=== PATIENT | male | born 1940 | race Caucasian/White ===

== ENCOUNTER → 2019-04-17 | Outpatient (CLI) | payer MEDICARE, OTHER ==
[~2019-04-17] MED LIST: HOLD METFORMIN - RECEIVED CONTRAST 20 ML VIAL IV SCH; IOHEXOL 350 MG/ML 100 ML (OMNIPAQUE 350) VIAL IV ONE; NS 100 ML (IVPB) BAG IV ONE
[2019-04-17 11:41] LABS: BUN/CREATININE RATIO 13; CREATININE SERUM 1.12 MG/DL (0.60-1.30); GFR ESTIMATED > 60
--- NOTE | 2019-04-17 14:25 | Diagnostic Imaging Report ---
PROCEDURE: CT neck soft tissue with contrast. TECHNIQUE: Multiple contiguous axial images were obtained through the neck after the administration of contrast. Auto Exposure Controls were utilized during the CT exam to meet ALARA standards for radiation dose reduction. INDICATION: Right neck pain and right neck swelling. COMPARISON: No prior studies are available for comparison. FINDINGS: BB marker is placed at the area of palpable abnormality in the right neck. There is a slightly irregular solid-appearing mass just deep to this location. This is deep to the lower portion of the right parotid gland and just anterior to the sternocleidomastoid musculature. Abnormal soft tissue measures 2.0 cm AP x 2.4 cm transverse x 2.8 cm cephalocaudal. This may represent enlarged lymph node. No other enlarged nodes are seen. Posterior cervical space is unremarkable. Bilateral submandibular and parotid glands appear to be fairly symmetric. Posterior nasopharynx are unremarkable. There is abnormal soft tissue thickening in the right lateral oropharynx. This area of thickening is suspicious for a mass measuring 2.9 x 2.2 cm. This abuts the base of the tongue on the right side. Epiglottis is unremarkable. Larynx is unremarkable. No thyroid mass is identified. The visualized intracranial structures are unremarkable. IMPRESSION: The area of soft tissue fullness in the right neck corresponds to a probable enlarged lymph node, as described. There is also abnormal soft tissue thickening in the region of the lateral right oropharynx/tonsillar region, abutting the right base of the tongue. This could represent a primary neoplasm with metastatic node to the right neck. Direct visualization of the oropharynx is recommended. If additional imaging is needed, MRI of the soft tissues of the neck with contrast may be useful for better characterization. PET imaging may be useful as well. Dictated by: Dictated on workstation # [id number]
== END ==
LOC: RAD 11:14
PROVIDERS: ATTEND Otolaryngology Otolaryngology/Facial Plastic Surgery
DX: R59.9 Enlarged lymph nodes, unspecified (principal)
CPT/HCPCS: 36415; 70491; 82565; 84520

== ENCOUNTER 2019-05-08 05:33 | Outpatient (CLI) | payer MEDICARE, OTHER ==
[~2019-05-08] VITALS: Ht 188 cm; Wt 86.4 kg
[2019-05-08] MEDS ORDERED: ASPI-586 PO (13:46)
[2019-05-08] MEDS ORDERED: LUBI8CAP PO (13:46)
[2019-05-08] MEDS ORDERED: ROSU10TA22 PO (13:46)
[2019-05-08] MEDS ORDERED: PANT20TA3 PO (13:46)
== END 2019-05-08 13:54 | disposition home or self-care (01) ==
LOC: PREOP 05:33
PROVIDERS: ATTEND Otolaryngology Otolaryngology/Facial Plastic Surgery
DX: Z01.818 Encounter for other preprocedural examination (principal)

== ENCOUNTER → 2019-05-22 | Outpatient (CLI) | payer MEDICARE, OTHER ==
[~2019-05-22] MED LIST changes: +2% VISCOUS LIDOCAINE PO; +ASPI-586 PO; +CATHETER FLUSH 10 ML SYR IV PRN; +HYDR-83 PO; +LUBI8CAP PO; +PANT20TA3 PO; +ROSU10TA22 PO
--- NOTE | 2019-05-22 12:35 | Diagnostic Imaging Report ---
PROCEDURE: CT chest with contrast only. TECHNIQUE: Multiple contiguous axial images were obtained through the chest after administration of intravenous contrast. Auto Exposure Controls were utilized during the CT exam to meet ALARA standards for radiation dose reduction. 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 COMPARISON: CT neck of 04/17/2019. FINDINGS: The heart size is within normal limits. No pericardial effusion is present. There is calcified aortic and coronary atherosclerotic plaque without evidence of aneurysm. There is no mediastinal, hilar, or axillary lymphadenopathy. The lung volumes are hyperexpanded. The lungs demonstrate no pulmonary nodules or masses. There are no focal areas of consolidation. A small amount of dependent atelectasis is seen in the lung bases. No central endobronchial obstructing lesions are identified. There is no pleural effusion or pneumothorax. The osseous structures demonstrate degenerative changes without focal osseous lesions or acute fracture. Limited views of the upper abdominal structures demonstrate no acute abnormalities. Both adrenal glands are unremarkable. IMPRESSION: 1. No suspicious pulmonary nodules or lymphadenopathy in the chest. No findings to suggest metastatic disease. 2. Hyperexpanded lungs which can be seen with COPD. Recommend correlation with PFTs. Dictated by: Dictated on workstation # [id number]
== END ==
LOC: RAD 11:57
PROVIDERS: ATTEND Otolaryngology Otolaryngology/Facial Plastic Surgery
DX: C09.9 Malignant neoplasm of tonsil, unspecified (principal)
CPT/HCPCS: 71260

== ENCOUNTER → 2019-05-23 | Outpatient (CLI) | payer MEDICARE, OTHER ==
[~2019-05-23] MED LIST changes: -CATHETER FLUSH 10 ML SYR IV PRN; -HOLD METFORMIN - RECEIVED CONTRAST 20 ML VIAL IV SCH; -IOHEXOL 350 MG/ML 100 ML (OMNIPAQUE 350) VIAL IV ONE; -NS 100 ML (IVPB) BAG IV ONE
--- NOTE | 2019-05-23 14:20 | Diagnostic Imaging Report ---
INDICATION: Squamous cell carcinoma of the right tonsil, initial staging. TECHNIQUE: Serum blood glucose level at time of injection was 98 mg/dL. Patient was administered 16.3 mCi F-18 FDG intravenously in the right forearm and PET imaging was performed from the top of skull to mid thighs. Noncontrast CT was also performed for attenuation correction and anatomic correlation. COMPARISON: No prior PET/CT studies available for comparison. Comparison is made with prior CT neck study from 04/17/[address] chest study from 05/22/2019. FINDINGS: There is symmetric activity throughout the brain. There is a hypermetabolic mass in the right tonsillar region, corresponding to the previously noted soft tissue mass on recent CT neck. This demonstrates SUV max of approximately 13 and corresponds to patient's primary tonsillar neoplasm. There is also hypermetabolic mari mass in the right neck at the same level just deep to the right parotid gland. This measures 2.2 cm in size and is consistent with previously noted enlarged lymph node. This is hypermetabolic and demonstrates an SUV max of 12. No other hypermetabolic neck lymph nodes are identified. No mediastinal or hilar hypermetabolism is identified. There is physiologic activity in the gastrointestinal and genitourinary tracts of abdomen and pelvis. No suspicious hypermetabolism is seen. IMPRESSION: 1. Hypermetabolic right tonsillar mass with hypermetabolic right neck lymph node consistent with metastatic node. No other suspicious regions of hypermetabolism are identified. Dictated by: Dictated on workstation # [id number]
== END ==
LOC: RAD 10:52
PROVIDERS: ATTEND Otolaryngology Otolaryngology/Facial Plastic Surgery
DX: C09.9 Malignant neoplasm of tonsil, unspecified (principal)

== ENCOUNTER 2019-06-07 10:27 | Outpatient (RCR) | payer MEDICARE, OTHER ==
[~2019-06-07 10:27] MED LIST changes: +HYDR-3812 PO; -HYDR-83 PO
[2019-06-08] MEDS ORDERED: HYDR-3812 PO (09:43)
[2019-06-08] MEDS ORDERED: MAGN1TAB31 PO (10:10)
[2019-06-08] MEDS ORDERED: PANT20TA3 PO (10:10)
[2019-06-08] MEDS ORDERED: LORA-404 PO (10:10)
[2019-06-08] MEDS ORDERED: ASPI-999 PO (10:10)
[2019-06-08] MEDS ORDERED: MAG-99 PO (10:10)
[2019-06-24] MEDS ORDERED: METO5TAB75 PO (12:13)
== END 2019-09-05 | disposition home or self-care (01) ==
LOC: PREOP 10:27 → EDSTATUS 10:30
PROVIDERS: ATTEND Otolaryngology Otolaryngology/Facial Plastic Surgery
DX: Z01.818 Encounter for other preprocedural examination (principal)

== ENCOUNTER 2019-06-24 10:48 | Emergency (ER) | payer MEDICARE, OTHER ==
[~2019-06-24] VITALS: Ht 187.9 cm; Wt 84.5 kg
[~2019-06-24 10:48] MED LIST changes: +ASPI-999 PO; -HYDR-3812 PO; +HYDR-83 PO; +LORA-404 PO; +MAG-99 PO; +MAGN1TAB31 PO
--- OUTSIDE RECORDS SUMMARY | 2019-06-24 10:59 | XMS REPORT | Continuity of Care Document ---
Demographics Preferred Language Unknown Marital Status Unknown Episcopal Affiliation Unknown Race Unknown Ethnic Group Unknown Author Organization Unknown Address Unknown Phone Unavailable Allergies Active Description Code Type Severity Reaction Onset Reported/Identified Relationship to Patient Clinical Status Yes No Known Drug Allergies [id number] N/A N/A Yes SNOW CRAB [id number] FOOD N/A N/A Yes No Allergy Information Available [id number] Drug Allergy Unknown N/A 020 Yes No Known Drug Allergies [id number] Drug Allergy Unknown N/A 05/08/2019 Yes SNOWCRAB SNOWCRAB Un known N/A 06/09/2019 Medications There is no data. Problems Date Dx Coded Attending Type Code Diagnosis Diagnosed By 04/24/2019 MINH SHOEMAKER, RJ Beckham Ot R59 .9 ENLARGED LYMPH NODES, UNSPECIFIED 04/24/2019 MINH SHOEMAKER, RJ Beckham Ot R59 .9 ENLARGED LYMPH NODES, UNSPECIFIED 04/25/2019 RJ WILKINSON MD P Ot R59 .9 ENLARGED LYMPH NODES, UNSPECIFIED 04/25/2019 MINH SHOEMAKER, RJ P Ot R59 .9 ENLARGED LYMPH NODES, UNSPECIFIED 04/26/2019 RJ WILKINSON MD P Ot Z01.818 ENCOUNTER FOR OTHER PREPROCEDURAL EXAMIN 05/04/2019 RJ WILKINSON MD Ot Z01.818 ENCOUNTER FOR OTHER PREPROCEDURAL EXAMIN 05/04/2019 RJ WILKINSON MD Ot Z01.818 ENCOUNTER FOR OTHER PREPROCEDURAL EXAMIN 05/05/2019 RJ WILKINSON MD P Ot Z01.818 ENCOUNTER FOR OTHER PREPROCEDURAL EXAMIN 05/08/2019 RJ WILKINSON MD Ot R59 .9 ENLARGED LYMPH NODES, UNSPECIFIED 05/08/2019 RJ WILKINSON MD P Ot Z01.818 ENCOUNTER FOR OTHER PREPROCEDURAL EXAMIN 05/08/2019 RJ WILKINSON MD Ot Z01.818 ENCOUNTER FOR OTHER PREPROCEDURAL EXAMIN 05/08/2019 RJ WILKINSON MD Ot Z01.818 ENCOUNTER FOR OTHER PREPROCEDURAL EXAMIN 05/10/2019 RJ WILKINSON MD Ot R59 .9 ENLARGED LYMPH NODES, UNSPECIFIED 05/11/2019 RJ WILKINSON MD P Ot R59 .9 ENLARGED LYMPH NODES, UNSPECIFIED 05/11/2019 RJ WILKINSON MD P Ot C09 .9 MALIGNANT NEOPLASM OF TONSIL, UNSPECIFIE 05/11/2019 MINH SHOEMAKER, RJ P Ot I25.10 ATHSCL HEART DISEASE OF [place] CORONARY 05/11/2019 MINH SHOEMAKER, RJ P Ot K21 .9 GASTRO-ESOPHAGEAL REFLUX DISEASE WITHOUT 05/11/2019 MINH SHOEMAKER, RJ P Ot Z79.82 [facility] (CURRENT) USE OF ASPIRIN 05/11/2019 RJ WILKINSON MD P Ot Z79.899 OTHER CUSTODIAL (CURRENT) DRUG THERAPY 05/11/2019 MINH SHOEMAKER, RJ P Ot Z95 .5 PRESENCE OF CORONARY ANGIOPLASTY IMPLANT 05/11/2019 RJ WILKINSON MD P Ot Z96.652 PRESENCE OF LEFT ARTIFICIAL KNEE JOINT 05/16/2019 RJ WILKINSON MD P Ot R59 .9 ENLARGED LYMPH NODES, UNSPECIFIED 05/18/2019 MINH SHOEMAKER, RJ P Ot C09 .9 MALIGNANT NEOPLASM OF TONSIL, UNSPECIFIE 05/18/2019 MINH SHOEMAKER, RJ P Ot I25.10 ATHSCL HEART DISEASE OF [place] CORONARY 05/18/2019 RJ WILKINSON MD P Ot K21 .9 GASTRO-ESOPHAGEAL REFLUX DISEASE WITHOUT 05/18/2019 RJ WILKINSON MD P Ot Z79.82 [facility] (CURRENT) USE OF ASPIRIN 05/18/2019 RJ WILKINSON MD P Ot Z79.899 OTHER [facility] (CURRENT) DRUG THERAPY 05/18/2019 MINH SHOEMAKER, RJ P Ot Z95 .5 PRESENCE OF CORONARY ANGIOPLASTY IMPLANT 05/18/2019 RJ WILKINSON MD P Ot Z96.652 PRESENCE OF LEFT ARTIFICIAL KNEE JOINT 05/18/2019 RJ WILKINSON MD P Ot R59 .9 ENLARGED LYMPH NODES, UNSPECIFIED 05/18/2019 MINH SHOEMAKER, RJ P Ot R59 .9 ENLARGED LYMPH NODES, UNSPECIFIED 05/22/2019 MINH SHOEMAKER, RJ P Ot R59 .9 ENLARGED LYMPH NODES, UNSPECIFIED 05/22/2019 MINH SHOEMAKER, RJ P Ot R59 .9 ENLARGED LYMPH NODES, UNSPECIFIED 05/22/2019 MINH SHOEMAKER, RJ P Ot R59 .9 ENLARGED LYMPH NODES, UNSPECIFIED 05/23/2019 MINH SHOEMAKER, RJ P Ot R59 .9 ENLARGED LYMPH NODES, UNSPECIFIED 05/23/2019 MINH SHOEMAKER, RJ P Ot R59 .9 ENLARGED LYMPH NODES, UNSPECIFIED 05/23/2019 MINH SHOEMAKER, RJ P Ot R59 .9 ENLARGED LYMPH NODES, UNSPECIFIED 05/23/2019 MINH SHOEMAKER, RJ P Ot R59 .9 ENLARGED LYMPH NODES, UNSPECIFIED 05/23/2019 MINH SHOEMAKER, RJ P Ot C09 .9 MALIGNANT NEOPLASM OF TONSIL, UNSPECIFIE 05/24/2019 MINH SHOEMAKER, RJ P Ot R59 .9 ENLARGED LYMPH NODES, UNSPECIFIED 05/24/2019 MINH SHOEMAKER, RJ P Ot C09 .9 MALIGNANT NEOPLASM OF TONSIL, UNSPECIFIE 05/24/2019 MINH SHOEMAKER, RJ P Ot C09 .9 MALIGNANT NEOPLASM OF TONSIL, UNSPECIFIE 05/30/2019 MINH SHOEMAKER, RJ P Ot R59 .9 ENLARGED LYMPH NODES, UNSPECIFIED 05/30/2019 MINH SHOEMAKER, RJ P Ot C09 .9 MALIGNANT NEOPLASM OF TONSIL, UNSPECIFIE 05/30/2019 MINH SHOEMAKER, RJ P Ot C09 .9 MALIGNANT NEOPLASM OF TONSIL, UNSPECIFIE 05/30/2019 MINH SHOEMAKER, RJ P Ot C09 .9 MALIGNANT NEOPLASM OF TONSIL, UNSPECIFIE 05/30/2019 MINH SHOEMAEKR, RJ P Ot R59 .9 ENLARGED LYMPH NODES, UNSPECIFIED 05/30/2019 MINH SHOEMAKER, RJ P Ot C09 .9 MALIGNANT NEOPLASM OF TONSIL, UNSPECIFIE 05/30/2019 MINH SHOEMAKER, RJ P Ot C09 .9 MALIGNANT NEOPLASM OF TONSIL, UNSPECIFIE 06/05/2019 MINH SHOEMAKER, RJ P Ot R59 .9 ENLARGED LYMPH NODES, UNSPECIFIED 06/05/2019 MINH SHOEMAKER, RJ P Ot C09 .9 MALIGNANT NEOPLASM OF TONSIL, UNSPECIFIE 06/05/2019 MINH SHOEMAKER, RJ P Ot C09 .9 MALIGNANT NEOPLASM OF TONSIL, UNSPECIFIE 06/07/2019 MINH SHOEMAKER, RJ P Ot R59 .9 ENLARGED LYMPH NODES, UNSPECIFIED 06/07/2019 MINH SHOEMAKER, RJ P Ot 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 .9 MALIGNANT NEOPLASM OF TONSIL, UNSPECIFIE 06/07/2019 MINH SHOEMAKER, RJ P Ot C09 .9 MALIGNANT NEOPLASM OF TONSIL, UNSPECIFIE 06/07/2019 MINH SHOEMAKER, RJ P Ot Z01.818 ENCOUNTER FOR OTHER PREPROCEDURAL EXAMIN 06/07/2019 MINH SHOEMAKER, RJ P Ot R59 .9 ENLARGED LYMPH NODES, UNSPECIFIED 06/07/2019 MINH SHOEMAKER, RJ P Ot C09 .9 MALIGNANT NEOPLASM OF TONSIL, UNSPECIFIE 06/07/2019 MINH SHOEMAKER, RJ P Ot C09 .9 MALIGNANT NEOPLASM OF TONSIL, UNSPECIFIE 06/07/2019 MINH SHOEMAKER, RJ Beckham Ot Z01.818 ENCOUNTER FOR OTHER PREPROCEDURAL EXAMIN 06/08/2019 MINH SHOEMAKER, RJ Beckham Ot R59 .9 ENLARGED LYMPH NODES, UNSPECIFIED 06/08/2019 MINH SHOEMAKER, RJ Beckham Ot C09 .9 MALIGNANT NEOPLASM OF TONSIL, UNSPECIFIE 06/08/2019 MINH SHOEMAKER, RJ Beckham Ot C09 .9 MALIGNANT NEOPLASM OF TONSIL, UNSPECIFIE 06/08/2019 MINH SHOEMAKER, RJ Beckham Ot Z01.818 ENCOUNTER FOR OTHER PREPROCEDURAL EXAMIN 06/08/2019 MINH SHOEMAKER, RJ Beckham Ot R59 .9 ENLARGED LYMPH NODES, UNSPECIFIED 06/08/2019 MINH SHOEMAKER, RJ Beckham Ot C09 .9 MALIGNANT NEOPLASM OF TONSIL, UNSPECIFIE 06/08/2019 MINH SHOEMAKER, RJ Beckham Ot C09 .9 MALIGNANT NEOPLASM OF TONSIL, UNSPECIFIE 06/08/2019 MINH SHOEMAKER, RJ Beckham Ot Z01.818 ENCOUNTER FOR OTHER PREPROCEDURAL EXAMIN 06/13/2019 RJ WILKINSON MD Ot C09 .9 MALIGNANT NEOPLASM OF TONSIL, UNSPECIFIE 06/13/2019 MINH SHOEMAKER, RJ Beckham Ot C09 .9 MALIGNANT NEOPLASM OF TONSIL, UNSPECIFIE 06/14/2019 TOMAS LOUISE Ot 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 06/19/2019 MINH SHOEMAKER, RJ Beckham Ot C09 .9 MALIGNANT NEOPLASM OF TONSIL, UNSPECIFIE 06/19/2019 MINH SHOEMAKER, RJ Beckham Ot C09 .9 MALIGNANT NEOPLASM OF TONSIL, UNSPECIFIE 06/22/2019 DOMINICK BALDWIN MD Ot C09.9 MALIGNANT NEOPLASM OF TONSIL, UNSPECIFIE 06/22/2019 DOMINICK BALDWIN MD Ot E78.00 PURE HYPERCHOLESTEROLEMIA, UNSPECIFIED 06/22/2019 DOMINICK BALDWIN MD Ot E78.5 HYPERLIPIDEMIA, UNSPECIFIED 06/22/2019 DOMINICK BALDWIN MD Ot F41.9 ANXIETY DISORDER, UNSPECIFIED 06/22/2019 DOMINICK BALDWIN MD Ot I25.2 OLD MYOCARDIAL INFARCTION 06/22/2019 DOMINICK BALDWIN MD, Ot K21.9 GASTRO-ESOPHAGEAL REFLUX DISEASE WITHOUT 06/22/2019 DOMINICK BALDWIN MD Ot K29.70 GASTRITIS, UNSPECIFIED, WITHOUT BLEEDING 06/22/2019 DOMINICK BALDWIN MD, Ot K44.9 DIAPHRAGMATIC HERNIA WITHOUT OBSTRUCTION 06/22/2019 DOMINICK BALDWIN MD, Ot Z79.82 [facility] (CURRENT) USE OF ASPIRIN 06/22/2019 DOMINICK BALDWIN MD, Ot Z79.89 9 OTHER [facility] (CURRENT) DRUG THERAPY 06/22/2019 DOMINICK BALDWIN MD, Ot Z80.1 FAMILY HISTORY OF MALIG NEOPLASM OF TRAC 06/22/2019 DOMINICK BALDWIN MD, Ot Z91.01 3 ALLERGY TO SEAFOOD 06/22/2019 DOMINICK BALDWIN MD, Ot Z96.65 2 PRESENCE OF LEFT ARTIFICIAL KNEE JOINT Procedures There is no data. Results Test Result Range PSA Total+% Free (Serial) - 06/03/16 08: 40 Prostate Specific Ag, Serum 2.9 ng/mL 0. 0-4.0 PSA, Free 0.45 ng/mL N/A % Free PSA 15.5 % [id number] - 04/17/19 11:23 Serum or plasma urea nitrogen measurement (mass/volume ) 14 mg/dL 7-18 Serum or plasma creatinine measurement (mass/volume) 1.12 mg/dL 0.60-1.30 Serum or plasma urea nitrogen/creatinine mass ratio 13 NRG Serum or plasma creatinine measurement w ith calculation of estimated glomerular filtration rate > NRG Complete blood count (CBC) with automate d white blood cell (WBC) differential - 05/11/19 07:05 Blood leukocytes automated count (number/volume) 7.7 10*3/uL 4.3-11.0 Blood erythrocytes automated count (number/volume) 4.16 10*6/uL 4.35-5.85 Venous blood hemoglobin measurement (mass/volume) 13.3 g/dL 13.3-17.7 Blood hematocrit (volume fraction) 40 % 40-54 Automated erythrocyte mean corpuscular volume 96 [ foz_us] 80-99 Automated erythrocyte mean corpuscular h emoglobin (mass per erythrocyte) 32 pg 25-34 Automated erythrocyte mean corpuscular h emoglobin concentration measurement (mass/volume) 33 g/dL 32-36 Automated erythrocyte distribution width ratio 12. 9 % 10.0- 14.5 Automated blood platelet count (count/volume) 213 10*3/uL 130-400 Automated blood platelet mean volume measurement 9.4 [foz_us] 7.4-10.4 Automated blood neutrophils/100 leukocytes 60 % 42-75 Automated blood lymphocytes/100 leukocytes 31 % 12-44 Blood monocytes/100 leukocytes 7 % 0-12 Automated blood eosinophils/100 leukocytes 2 % 0-10 Automated blood basophils/100 leukocytes 0 % 0-10 Blood neutrophils automated count (number/volume) 4.6 10*3 1.8-7.8 Blood lymphocytes automated count (number/volume) 2.4 10*3 1.0-4.0 Blood monocytes automated count (number/volume) 0. 5 10*3 0.0-1.0 Automated eosinophil count 0.2 10*3/uL 0 .0-0.3 Automated blood basophil count (count/volume) 0.0 10*3/uL 0.0-0.1 Whole blood basic metabolic panel - 03/30 07:05 Serum or plasma sodium measurement (moles/volume) 139 mmol/L 135-145 Serum or plasma potassium measurement (moles/volume) 4.1 mmol/L 3.6-5.0 Serum or plasma chloride measurement (moles/volume) 103 mmol/L 98-107 Carbon dioxide 24 mmol/L 21-32 Serum or plasma anion gap determination (moles/volume) 12 mmol/L 5-14 Serum or plasma urea nitrogen measurement (mass/volume ) 12 mg/dL 7-18 Serum or plasma creatinine measurement (mass/volume) 1.17 mg/dL 0.60-1.30 Serum or plasma urea nitrogen/creatinine mass ratio 10 NRG Serum or plasma creatinine measurement w ith calculation of estimated glomerular filtration rate 60 NRG Serum or plasma glucose measurement (mass/volume) 95 mg/dL 70-105 Serum or plasma calcium measurement (mass/volume) 9.3 mg/dL 8.5-10.1 Methicillin resistant Staphylococcus aur eus (MRSA) screening culture - 05/11/19 07:05 Methicillin resistant Staphylococcus aureus (MRSA) scr eening culture NEG NRG Methicillin resistant Staphylococcus aur eus (MRSA) screening culture - 06/08/19 09:25 Methicillin resistant Staphylococcus aureus (MRSA) scr eening culture NEG NRG Encounters ACCT No. Visit Date/Time Discharge Status Pt. Type Provider Facility Loc./Unit Complaint [id number] 02/07/2019 09:33:24 Document Registration [id number] 12/28/2018 14:08:51 Document Registration [id number] 08/19/2018 09:29:42 Document Registration [id number] 07/06/2018 10:04:50 Document Registration [id number] 06/28/2018 14:10:14 Document Registration [id number] 06/20/2018 09:42:24 Document Registration [id number] 04/13/2018 09:56:07 Document Registration [id number] 02/15/2018 10:25:54 Document Registration [id number] 10/15/2017 10:22:44 Document Registration [id number] 09/13/2017 15:20:26 Document Registration [id number] 08/16/2017 07:59:06 Document Registration [id number] 04/21/2017 08:29:19 Document Registration [id number] 06/19/2019 09:50:00 23:59:59 CLS Outpatient TOMAS LOUISE [facility] ONC [id number] 06/08/2019 08:44:00 13:40:00 DIS Outpatient DOMINICK BALDWIN MD [facility] SDC TONSIL CANCER [id number] 06/07/2019 10:27:00 23:59:59 CLS Outpatient RJ WILKINSON MD [facility] PREOP RIGHT TONSIL MASS [id number] 05/23/2019 10:52:00 23:59:59 CLS Outpatient RJ WILKINSON MD [facility] RAD SQUAMOUS CELL CARCINOMA [id number] 05/22/2019 11:57:00 23:59:59 CLS Outpatient RJ WILKINSON MD [facility] RAD SQUAMOUS CELL CARCINOMA [id number] 05/11/2019 06:49:00 10:30:00 DIS Outpatient RJ WILKINSON MD [facility] RIGHT TONSIL MASS [id number] 05/08/2019 05:33:00 13:54:00 DIS Outpatient RJ WILKINSON MD [facility] PREOP RIGHT TONSIL MASS [id number] 04/17/2019 11:14:00 020 23:59:59 CLS Outpatient MINH SHOEMAKER, RJ Beckham [facility] RAD SWOLLEN LYMPH NODE R [place] CK [id number] 03/02/2019 09:36:58 03/02/2019 23:59: 59 CLS Outpatient KhoilingTrenton garcia [id number] 02/14/2019 09:23:54 02/14/2019 23:59: 59 CLS Outpatient [place]ho[place] garcia [id number] 02/07/2019 10:10:30 02/07/2019 23:59: 59 CLS Outpatient Felisha Unger [id number] 07/06/2018 09:57:33 07/06/2018 23:59: 59 CLS Outpatient Trenton Cabrera [id number] 06/20/2018 09:56:43 06/20/2018 23:59: 59 CLS Outpatient KhoilingT[place]on garcia [id number] 04/13/2018 10:14:29 04/13/2018 23:59: 59 CLS Outpatient KhoilingT[place]on garcia [id number] 02/15/2018 10:02:56 02/15/2018 23:59: 59 CLS Outpatient HetlingerTrenton [id number] 01/25/2018 13:52:40 01/25/2018 23:59: 59 CLS Outpatient KhoilingT[place]on garcia [id number] 12/17/2017 10:44:09 12/17/2017 23:59: 59 CLS Outpatient HetlingT[place]on garcia [id number] 10/15/2017 10:32:57 10/15/2017 23:59: 59 CLS Outpatient KhoilingT[place]on garcia [id number] 08/17/2017 15:26:23 08/17/2017 23:59: 59 CLS Outpatient HetlingT[place]on garcia [id number] 11/13/2015 10:35:30 11/13/2015 23:59: 59 CLS Outpatient KhoilingT[place]on garcia [id number] 10/25/2015 10:30:13 10/25/2015 23:59: 59 CLS Outpatient HetlingTrenton garcia [id number] 10/18/2015 12:09:15 10/18/2015 23:59: 59 CLS Outpatient KhoilingTrenton garcia [id number] 10/07/2015 16:00:50 10/07/2015 23:59: 59 CLS Outpatient HetlingTrenton garcia [id number] 02/07/2015 10:18:46 02/07/2015 23:59: 59 CLS Outpatient Rina, V S [id number] 12/18/2014 10:21:32 12/18/2014 23:59: 59 CLS Outpatient Mitch Flynn [id number] 11/30/2013 11:43:16 11/30/2013 23:59: 59 CLS Outpatient GalijoseTrenton [id number] 06/04/2016 12:07:00 Document Registration
[2019-06-24] MEDS ORDERED: diphenhydrAMINE 50 MG/ML INJ (BENADRYL) IVP ONE (11:15)
[2019-06-24] MEDS ORDERED: PROCHLORPERAZINE 10 MG/2ML INJ (COMPAZINE) IV ONE (11:15)
[2019-06-24] MEDS ORDERED: LACTATED RINGERS 1,000 ML IV SCH ×2 (11:15→12:15)
--- NOTE | 2019-06-24 11:18 | ED Abdominal Pain ---
General Stated Complaint: VOMITING Source of Information: Patient Exam Limitations: No Limitations History of Present Illness Date Seen by Provider: June 24, 2019 Time Seen by Provider: 11:15 Initial Comments To ER by private vehicle from home with reports of nausea and vomiting. Been ongoing for a couple of days. 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 This was diagnosed on April 23. He follows with Dr. Holland from radiation oncology and Dr. Carney from chemotherapy. He's been using Zofran at home without any improvement. No fevers no chills no abdominal pain. He did have a PEG tube placed about 3 weeks ago but is having no troubles with that. He tried to drink even water this morning and vomited shortly thereafter. Timing/Duration: 1-2 Days Severity/Quality: Moderate Radiation: No Radiation Activities at Onset: None Associated Symptoms: Denies Symptoms Allergies and Home Medications Allergies Uncoded Allergies: SNOWCRAB (Allergy, Unknown, 06/09/19) Home Medications Aspirin 81 Mg Tab.chew, 81 MG PO DAILY, (Reported) Hydrocodone/Acetaminophen 1 Each Tablet, 1 EACH PO Q4H Prescribed by: CHARLES MCCOY on 05/11/19 0842 Hydrocodone/Acetaminophen 1 Each Tablet, 1-2 EACH PO Q4H PRN for PAIN- BREAKTHROUGH Prescribed by: FARRAH HOLMAN on 06/08/19 0943 Lorazepam 0.5 Mg Tablet, 0.5 MG PO TID PRN for ANXIETY, (Reported) Lubiprostone 8 Mcg Capsule, 8 MCG PO DAILY, (Reported) Mag Carb/Al Hydrox/Alginic AC 355 Ml Oral.susp, 355 ML PO HS, (Reported) Magnesium Carbonate/Al Hydrox 1 Each Tab.chew, 2 EACH PO DAILY PRN, (Reported) Pantoprazole Sodium 20 Mg Tablet.dr, 2 TAB PO DAILY, (Reported) Rosuvastatin Calcium 10 Mg Tablet, 10 MG PO DAILY, (Reported) [2% Viscous Lidocaine] ADDBAG, 1 TSP PO Q3HR Prescribed by: CHARLES MCCOY on 05/11/19 0842 Patient Home Medication List Home Medication List Reviewed: Yes Review of Systems Review of Systems Constitutional: see HPI; No chills, No fever; malaise, weakness EENTM: No Symptoms Reported Respiratory: No Symptoms Reported Cardiovascular: No Symptoms Reported Gastrointestinal: See HPI, Abdominal Pain; Denies Constipated, Denies Diarrhea; Nausea, Vomiting Genitourinary: No Symptoms Reported Musculoskeletal: no symptoms reported Skin: no symptoms reported Psychiatric/Neurological: No Symptoms Reported Endocrine: No Symptoms Reported Hematologic/Lymphatic: No Symptoms Reported Past Nvexiea-Onyxdl-Bmzwlo Hx Patient Social History Recent Foreign Travel: No Contact w/Someone Who Travel: No Recent Hopitalizations: No Immunizations Up To Date PED Vaccines UTD: No Date of Pneumonia Vaccine: Nov 08, 2018 Date of Influenza Vaccine: Nov 08, 2018 Seasonal Allergies Seasonal Allergies: No Past Medical History Surgeries: Yes (L TKR) Coronary Stent Respiratory: No Cardiac: Yes (stents ) High Cholesterol Neurological: No Genitourinary: No Gastrointestinal: Yes Gastroesophageal Reflux, Chronic Constipation Musculoskeletal: No Endocrine: No HEENT: Yes (R parotid mass) Cancer: No Psychosocial: No Integumentary: No Blood Disorders: No Physical Exam Vital Signs Vital Signs - First Documented 06/24/19 10:55 Temp 36.4 Pulse 74 Resp 18 B/P (MAP) 126/87 (100) Pulse Ox 98 O2 Delivery Room Air Capillary Refill : Height/Weight/BMI Height: '" Weight: lbs. oz. kg; 24.70 BMI Method: General Appearance: WD/WN, no apparent distress HEENT: PERRL/EOMI, normal ENT inspection Respiratory: lungs clear, normal breath sounds, no respiratory distress, no accessory muscle use Cardiovascular: regular rate, rhythm, no murmur Gastrointestinal: normal bowel sounds, non tender, soft Extremities: normal range of motion, non-tender Neurologic/Psychiatric: alert, normal mood/affect, oriented x 3 Skin: normal color, warm/dry Progress/Results/Core Measures Results/Orders Lab Results Laboratory Tests Test 06/24/19 11:11 Range/Units White Blood Count 7.2 4.3-11.0 10^3/uL Red Blood Count 3.74 L 4.35-5.85 10^6/uL Hemoglobin 11.9 L 13.3-17.7 G/DL Hematocrit 35 L 40-54 % Mean Corpuscular Volume 93 80-99 FL Mean Corpuscular Hemoglobin 32 25-34 PG Mean Corpuscular Hemoglobin Concent 34 32-36 G/DL Red Cell Distribution Width 12.1 10.0-14.5 % Platelet Count 232 130-400 10^3/uL Mean Platelet Volume 9.0 7.4-10.4 FL Neutrophils (%) (Auto) 83 H 42-75 % Lymphocytes (%) (Auto) 10 L 12-44 % Monocytes (%) (Auto) 6 0-12 % Eosinophils (%) (Auto) 2 0-10 % Basophils (%) (Auto) 0 0-10 % Neutrophils # (Auto) 5.9 1.8-7.8 X 10^3 Lymphocytes # (Auto) 0.7 L 1.0-4.0 X 10^3 Monocytes # (Auto) 0.4 0.0-1.0 X 10^3 Eosinophils # (Auto) 0.1 0.0-0.3 10^3/uL Basophils # (Auto) 0.0 0.0-0.1 10^3/uL Sodium Level 132 L 135-145 MMOL/L Potassium Level 4.4 3.6-5.0 MMOL/L Chloride Level 100 98-107 MMOL/L Carbon Dioxide Level 22 21-32 MMOL/L Anion Gap 10 5-14 MMOL/L Blood Urea Nitrogen 17 7-18 MG/DL Creatinine 1.02 0.60-1.30 MG/DL Estimat Glomerular Filtration Rate > 60 BUN/Creatinine Ratio 17 Glucose Level 94 70-105 MG/DL Calcium Level 9.2 8.5-10.1 MG/DL Corrected Calcium 9.3 8.5-10.1 MG/DL Total Bilirubin 0.7 0.1-1.0 MG/DL Aspartate Amino Transf (AST/SGOT) 9 5-34 U/L Alanine Aminotransferase (ALT/SGPT) 13 0-55 U/L Alkaline Phosphatase 66 40-136 U/L Total Protein 7.1 6.4-8.2 GM/DL Albumin 3.9 3.2-4.5 GM/DL Lipase 13 8-78 U/L My Orders Orders - STEFF GONZALEZ [employer] Cbc With Automated Diff (06/24/19 11:13) Lipase (06/24/19 11:13) Comprehensive Metabolic Panel (06/24/19 11:13) Ed Iv/Invasive Line Start (06/24/19 11:13) Lactated Ringers (Lr 1000 Ml Iv Solution (06/24/19 11:15) Diphenhydramine Injection (Benadryl Inje (06/24/19 11:15) Prochlorperazine Injection (Compazine In (06/24/19 11:15) Normal Saline Bolus 1,000ml (06/24/19 12:15) Medications Given in ED Current Medications Medications Dose Ordered Sig/Joana Route Start Time Stop Time Status Last Admin Dose Admin Diphenhydramine HCl 12.5 mg ONCE ONCE IVP 06/24/19 11:15 06/24/19 11:16 DC 06/24/19 11:20 12.5 MG Prochlorperazine Edisylate 5 mg ONCE ONCE IV 06/24/19 11:15 06/24/19 11:16 DC 06/24/19 11:20 5 MG Vital Signs/I&O 06/24/19 10:55 Temp 36.4 Pulse 74 Resp 18 B/P (MAP) 126/87 (100) Pulse Ox 98 O2 Delivery Room Air Departure Communication (Admissions) Spoke with Dr. Carney, would like a prescription for Reglan Impression Primary Impression: Nausea and vomiting Disposition: HOME, SELF-CARE Condition: Stable Departure-Patient Inst. Referrals: MARCI WHITE MD (PCP/Family) Primary Care Physician Add. Discharge Instructions: 1. Keep the appointment at the cancer center on Wednesday 2. Return to ER for any concerns 3. Today the nausea medication as directed. Scripts Metoclopramide HCl (Reglan) 5 Mg Tablet 5 MG PO TID PRN for NAUSEA/VOMITING, #14 TAB Prov: STEFF GONZALEZ APRN 06/24/19 STEFF GONZALEZ APRN June 24, 2019 11:18
[2019-06-24 11:20] LABS: BASOPHILS % (AUTO) 0 % (0-10); EOSINOPHILS # (AUTO) 0.1 10^3/uL (0.0-0.3); EOSINOPHILS % (AUTO) 2 % (0-10); HEMATOCRIT 35 % (40-54); HEMOGLOBIN 11.9 G/DL (13.3-17.7); LYMPHOCYTES # (AUTO) 0.7 X 10^3 (1.0-4.0); LYMPHOCYTES % (AUTO) 10 % (12-44); MEAN CORPUSCULAR HEMOGLOBIN 32 PG (25-34); MEAN CORPUSCULAR HGB CONC 34 G/DL (32-36); MEAN CORPUSCULAR VOLUME 93 FL (80-99); MONOCYTES # (AUTO) 0.4 X 10^3 (0.0-1.0); MONOCYTES % (AUTO) 6 % (0-12); NEUTROPHILS # (AUTO) 5.9 X 10^3 (1.8-7.8); NEUTROPHILS % (AUTO) 83 % (42-75); PLATELET COUNT 232 10^3/uL (130-400); RED CELL DISTRIBUTION WIDTH 12.1 % (10.0-14.5); WHITE BLOOD COUNT 7.2 10^3/uL (4.3-11.0)
[2019-06-24 11:31] LABS: ALBUMIN 3.9 GM/DL (3.2-4.5)
[2019-06-24 11:32] LABS: CHLORIDE 100 MMOL/L (98-107); POTASSIUM 4.4 MMOL/L (3.6-5.0); SODIUM 132 MMOL/L (135-145)
[2019-06-24 11:33] LABS: CALCIUM 9.2 MG/DL (8.5-10.1)
[2019-06-24 11:34] LABS: GLUCOSE 94 MG/DL (70-105); TOTAL PROTEIN 7.1 GM/DL (6.4-8.2)
[2019-06-24 11:35] LABS: CARBON DIOXIDE 22 MMOL/L (21-32)
[2019-06-24 11:36] LABS: BILIRUBIN,TOTAL 0.7 MG/DL (0.1-1.0)
[2019-06-24 11:37] LABS: ALKALINE PHOSPHATASE 66 U/L (40-136); CREATININE SERUM 1.02 MG/DL (0.60-1.30); GFR ESTIMATED > 60
[2019-06-24 11:39] LABS: BUN/CREATININE RATIO 17
[2019-06-24 11:40] LABS: ALANINE AMINOTRANSFERASE 13 U/L (0-55)
[2019-06-24 11:41] LABS: LIPASE 13 U/L (8-78)
--- NOTE | 2019-06-24 11:50 | NUR ---
Per pt request this RN updated , Melyssa Barlow, regarding pt status and findings.
[2019-06-24] MEDS ORDERED: METO5TAB75 PO (12:13)
[2019-06-24] MEDS ORDERED: NS IV 1000 ML 1,000 ML IV SCH (12:15)
[2019-06-24 13:09] VITALS: BP 139/76
== END 2019-06-24 13:09 | disposition home or self-care (01) ==
LOC: EDUNIT# 10:48 → ER 10:49
DX: R11.2 Nausea with vomiting, unspecified (principal); E78.00 Pure hypercholesterolemia, unspecified; K21.9 Gastro-esophageal reflux disease without esophagitis; Z79.82 Long term (current) use of aspirin; Z95.5 Presence of coronary angioplasty implant and graft; Z96.652 Presence of left artificial knee joint
CPT/HCPCS: 36415; 80053; 83690; 85025

== ENCOUNTER → 2019-06-26 | Outpatient (CLI) | payer MEDICARE, OTHER ==
[~2019-06-26] MED LIST changes: +GADOBUTROL 10 MMOL/10 ML (GADAVIST) VIAL IV ONE; +METO5TAB75 PO
--- NOTE | 2019-06-26 12:29 | Diagnostic Imaging Report ---
PROCEDURE: MR imaging of the brain with and without contrast. TECHNIQUE: Multiplanar, multisequence MR imaging of the brain was performed with and without contrast. DATE: June 26, 2019. COMPARISON: PET CT May 23, 2019. HISTORY: 78-year-old male, history of squamous cell carcinoma of the right tonsil. FINDINGS: There is no restricted diffusion. There is no area of abnormal intracranial susceptibility. There is preservation of normal intracranial flow voids. The ventricles and CSF spaces are normal in size and configuration for patient age. There is no abnormal extra axial fluid collection. There is no acute intracranial hemorrhage. There is no mass effect or midline shift. There are multifocal areas of increased T2 and FLAIR signal in the periventricular and subcortical white matter which most likely reflect moderate changes of chronic small vessel ischemic disease. There is no abnormal intracranial enhancement. There is a nonspecific enhancing lesion of the right parietal bone measuring approximately 11 x 8 mm in size best seen on coronal postcontrast image 4. The lesion is also visible on axial T1 sequence image 20. There is no additional identified bone lesion. The visualized portions of the paranasal sinuses are well aerated. There is nonspecific opacification in the left greater than right mastoid air cells. IMPRESSION: 1. No evidence of metastatic disease to brain. 2. Moderate changes of chronic small vessel ischemic disease. 3. Nonspecific enhancing lesion of the right frontal bone which measures 11 x 8 mm in size. Recommend comparison with earlier prior cross-sectional imaging of the brain if available to assess for possible stability. This lesion is not FDG avid on recent PET/CT of May 22, 2021 to specifically suggest a metastatic lesion. This also has a nonaggressive appearance on CT. Dictated by: Dictated on workstation # [id number]
== END ==
LOC: RAD 11:00
PROVIDERS: ATTEND Nurse Practitioner Adult Health
DX: C09.1 Malignant neoplasm of tonsillar pillar (anterior) (posterior) (principal); I67.82 Cerebral ischemia; G93.89 Other specified disorders of brain
CPT/HCPCS: 70553

== ENCOUNTER 2019-08-14 14:29 | Outpatient (RCR) | payer MEDICARE, OTHER ==
[2019-06-05 15:18] LABS: BASOPHILS % (AUTO) 0 % (0-10); EOSINOPHILS # (AUTO) 0.1 10^3/uL (0.0-0.3); EOSINOPHILS % (AUTO) 1 % (0-10); HEMATOCRIT 39 % (40-54); HEMOGLOBIN 13.1 G/DL (13.3-17.7); LYMPHOCYTES # (AUTO) 1.5 X 10^3 (1.0-4.0); LYMPHOCYTES % (AUTO) 28 % (12-44); MEAN CORPUSCULAR HEMOGLOBIN 32 PG (25-34); MEAN CORPUSCULAR HGB CONC 34 G/DL (32-36); MEAN CORPUSCULAR VOLUME 95 FL (80-99); MEAN PLATELET VOLUME 9.2 FL (7.4-10.4); MONOCYTES # (AUTO) 0.4 X 10^3 (0.0-1.0); MONOCYTES % (AUTO) 8 % (0-12); NEUTROPHILS # (AUTO) 3.4 X 10^3 (1.8-7.8); NEUTROPHILS % (AUTO) 62 % (42-75); PLATELET COUNT 216 10^3/uL (130-400); RED CELL DISTRIBUTION WIDTH 12.4 % (10.0-14.5); WHITE BLOOD COUNT 5.4 10^3/uL (4.3-11.0)
[2019-06-05 15:39] LABS: ALANINE AMINOTRANSFERASE 12 U/L (0-55); ALKALINE PHOSPHATASE 75 U/L (40-136); BILIRUBIN,TOTAL 0.5 MG/DL (0.1-1.0); BUN/CREATININE RATIO 11; CALCIUM 8.9 MG/DL (8.5-10.1); CARBON DIOXIDE 27 MMOL/L (21-32); CHLORIDE 102 MMOL/L (98-107); CREATININE SERUM 1.05 MG/DL (0.60-1.30); GFR ESTIMATED > 60; GLUCOSE 95 MG/DL (70-105); MAGNESIUM 2.1 MG/DL (1.6-2.4); POTASSIUM 4.1 MMOL/L (3.6-5.0); SODIUM 136 MMOL/L (135-145); TOTAL PROTEIN 6.4 GM/DL (6.4-8.2)
[2019-06-19 10:13] LABS: BASOPHILS % (AUTO) 0 % (0-10); EOSINOPHILS # (AUTO) 0.2 10^3/uL (0.0-0.3); EOSINOPHILS % (AUTO) 2 % (0-10); HEMATOCRIT 38 % (40-54); HEMOGLOBIN 12.7 G/DL (13.3-17.7); LYMPHOCYTES # (AUTO) 1.3 X 10^3 (1.0-4.0); LYMPHOCYTES % (AUTO) 15 % (12-44); MEAN CORPUSCULAR HEMOGLOBIN 32 PG (25-34); MEAN CORPUSCULAR HGB CONC 34 G/DL (32-36); MEAN CORPUSCULAR VOLUME 94 FL (80-99); MEAN PLATELET VOLUME 9.2 FL (7.4-10.4); MONOCYTES # (AUTO) 0.5 X 10^3 (0.0-1.0); MONOCYTES % (AUTO) 6 % (0-12); NEUTROPHILS # (AUTO) 6.4 X 10^3 (1.8-7.8); NEUTROPHILS % (AUTO) 76 % (42-75); PLATELET COUNT 317 10^3/uL (130-400); RED CELL DISTRIBUTION WIDTH 11.8 % (10.0-14.5); WHITE BLOOD COUNT 8.5 10^3/uL (4.3-11.0)
[2019-06-19 10:37] LABS: BUN/CREATININE RATIO 12; CALCIUM 9.4 MG/DL (8.5-10.1); CARBON DIOXIDE 22 MMOL/L (21-32); CHLORIDE 100 MMOL/L (98-107); CREATININE SERUM 1.15 MG/DL (0.60-1.30); GFR ESTIMATED > 60; GLUCOSE 112 MG/DL (70-105); MAGNESIUM 2.1 MG/DL (1.6-2.4); POTASSIUM 4.5 MMOL/L (3.6-5.0); SODIUM 133 MMOL/L (135-145)
[2019-06-26 10:10] LABS: BASOPHILS % (AUTO) 0 % (0-10); EOSINOPHILS # (AUTO) 0.2 10^3/uL (0.0-0.3); EOSINOPHILS % (AUTO) 3 % (0-10); HEMATOCRIT 33 % (40-54); HEMOGLOBIN 11.3 G/DL (13.3-17.7); LYMPHOCYTES # (AUTO) 0.7 X 10^3 (1.0-4.0); LYMPHOCYTES % (AUTO) 13 % (12-44); MEAN CORPUSCULAR HEMOGLOBIN 32 PG (25-34); MEAN CORPUSCULAR HGB CONC 34 G/DL (32-36); MEAN CORPUSCULAR VOLUME 94 FL (80-99); MEAN PLATELET VOLUME 8.7 FL (7.4-10.4); MONOCYTES # (AUTO) 0.4 X 10^3 (0.0-1.0); MONOCYTES % (AUTO) 7 % (0-12); NEUTROPHILS # (AUTO) 4.1 X 10^3 (1.8-7.8); NEUTROPHILS % (AUTO) 77 % (42-75); PLATELET COUNT 207 10^3/uL (130-400); RED CELL DISTRIBUTION WIDTH 12.2 % (10.0-14.5); WHITE BLOOD COUNT 5.3 10^3/uL (4.3-11.0)
[2019-06-26 10:27] LABS: ALANINE AMINOTRANSFERASE 12 U/L (0-55); ALBUMIN 3.8 GM/DL (3.2-4.5); ALKALINE PHOSPHATASE 72 U/L (40-136); BILIRUBIN,TOTAL 0.5 MG/DL (0.1-1.0); BUN/CREATININE RATIO 16; CARBON DIOXIDE 23 MMOL/L (21-32); CHLORIDE 102 MMOL/L (98-107); CREATININE SERUM 0.97 MG/DL (0.60-1.30); GFR ESTIMATED > 60; GLUCOSE 105 MG/DL (70-105); MAGNESIUM 1.9 MG/DL (1.6-2.4); POTASSIUM 4.1 MMOL/L (3.6-5.0); SODIUM 134 MMOL/L (135-145); TOTAL PROTEIN 6.9 GM/DL (6.4-8.2)
[2019-07-04 09:11] LABS: BASOPHILS % (AUTO) 0 % (0-10); EOSINOPHILS # (AUTO) 0.1 10^3/uL (0.0-0.3); EOSINOPHILS % (AUTO) 3 % (0-10); HEMATOCRIT 34 % (40-54); HEMOGLOBIN 11.4 G/DL (13.3-17.7); LYMPHOCYTES # (AUTO) 0.6 X 10^3 (1.0-4.0); LYMPHOCYTES % (AUTO) 19 % (12-44); MEAN CORPUSCULAR HEMOGLOBIN 32 PG (25-34); MEAN CORPUSCULAR HGB CONC 34 G/DL (32-36); MEAN CORPUSCULAR VOLUME 93 FL (80-99); MEAN PLATELET VOLUME 9.4 FL (7.4-10.4); MONOCYTES # (AUTO) 0.4 X 10^3 (0.0-1.0); MONOCYTES % (AUTO) 12 % (0-12); NEUTROPHILS # (AUTO) 1.9 X 10^3 (1.8-7.8); NEUTROPHILS % (AUTO) 65 % (42-75); PLATELET COUNT 158 10^3/uL (130-400); RED CELL DISTRIBUTION WIDTH 12.6 % (10.0-14.5); WHITE BLOOD COUNT 2.9 10^3/uL (4.3-11.0)
[2019-07-04 09:22] LABS: ALANINE AMINOTRANSFERASE 9 U/L (0-55); ALBUMIN 3.9 GM/DL (3.2-4.5); ALKALINE PHOSPHATASE 73 U/L (40-136); BILIRUBIN,TOTAL 0.6 MG/DL (0.1-1.0); BUN/CREATININE RATIO 14; CARBON DIOXIDE 25 MMOL/L (21-32); CHLORIDE 100 MMOL/L (98-107); CREATININE SERUM 1.08 MG/DL (0.60-1.30); GFR ESTIMATED > 60; GLUCOSE 102 MG/DL (70-105); POTASSIUM 4.3 MMOL/L (3.6-5.0); SODIUM 133 MMOL/L (135-145); TOTAL PROTEIN 6.9 GM/DL (6.4-8.2)
[2019-07-10 10:27] LABS: BASOPHILS % (AUTO) 1 % (0-10); EOSINOPHILS % (AUTO) 1 % (0-10); HEMATOCRIT 33 % (40-54); HEMOGLOBIN 11.3 G/DL (13.3-17.7); LYMPHOCYTES # (AUTO) 0.5 X 10^3 (1.0-4.0); LYMPHOCYTES % (AUTO) 17 % (12-44); MEAN CORPUSCULAR HEMOGLOBIN 32 PG (25-34); MEAN CORPUSCULAR HGB CONC 34 G/DL (32-36); MEAN CORPUSCULAR VOLUME 95 FL (80-99); MEAN PLATELET VOLUME 9.6 FL (7.4-10.4); MONOCYTES # (AUTO) 0.3 X 10^3 (0.0-1.0); MONOCYTES % (AUTO) 10 % (0-12); NEUTROPHILS # (AUTO) 1.9 X 10^3 (1.8-7.8); NEUTROPHILS % (AUTO) 71 % (42-75); PLATELET COUNT 141 10^3/uL (130-400); RED CELL DISTRIBUTION WIDTH 13.1 % (10.0-14.5); WHITE BLOOD COUNT 2.7 10^3/uL (4.3-11.0)
[2019-07-10 10:41] LABS: BUN/CREATININE RATIO 20; CALCIUM 8.8 MG/DL (8.5-10.1); CARBON DIOXIDE 24 MMOL/L (21-32); CHLORIDE 100 MMOL/L (98-107); CREATININE SERUM 0.84 MG/DL (0.60-1.30); GFR ESTIMATED > 60; GLUCOSE 107 MG/DL (70-105); POTASSIUM 4.4 MMOL/L (3.6-5.0); SODIUM 133 MMOL/L (135-145)
[2019-07-17 14:32] LABS: BASOPHILS % (AUTO) 0 % (0-10); EOSINOPHILS % (AUTO) 2 % (0-10); HEMATOCRIT 31 % (40-54); HEMOGLOBIN 10.6 G/DL (13.3-17.7); LYMPHOCYTES # (AUTO) 0.6 X 10^3 (1.0-4.0); LYMPHOCYTES % (AUTO) 26 % (12-44); MEAN CORPUSCULAR HEMOGLOBIN 32 PG (25-34); MEAN CORPUSCULAR HGB CONC 34 G/DL (32-36); MEAN CORPUSCULAR VOLUME 95 FL (80-99); MEAN PLATELET VOLUME 9.4 FL (7.4-10.4); MONOCYTES # (AUTO) 0.3 X 10^3 (0.0-1.0); MONOCYTES % (AUTO) 13 % (0-12); NEUTROPHILS # (AUTO) 1.4 X 10^3 (1.8-7.8); NEUTROPHILS % (AUTO) 59 % (42-75); PLATELET COUNT 150 10^3/uL (130-400); RED CELL DISTRIBUTION WIDTH 14.2 % (10.0-14.5); WHITE BLOOD COUNT 2.3 10^3/uL (4.3-11.0)
[2019-07-17 14:47] LABS: ALANINE AMINOTRANSFERASE 15 U/L (0-55); ALBUMIN 3.9 GM/DL (3.2-4.5); ALKALINE PHOSPHATASE 63 U/L (40-136); BILIRUBIN,TOTAL 0.4 MG/DL (0.1-1.0); BUN/CREATININE RATIO 22; CALCIUM 8.6 MG/DL (8.5-10.1); CARBON DIOXIDE 28 MMOL/L (21-32); CHLORIDE 97 MMOL/L (98-107); CREATININE SERUM 0.81 MG/DL (0.60-1.30); GFR ESTIMATED > 60; GLUCOSE 101 MG/DL (70-105); MAGNESIUM 2.1 MG/DL (1.6-2.4); POTASSIUM 4.4 MMOL/L (3.6-5.0); SODIUM 130 MMOL/L (135-145); TOTAL PROTEIN 6.7 GM/DL (6.4-8.2)
[2019-07-25 10:09] LABS: BASOPHILS % (AUTO) 0 % (0-10); EOSINOPHILS % (AUTO) 1 % (0-10); HEMATOCRIT 29 % (40-54); HEMOGLOBIN 9.9 G/DL (13.3-17.7); LYMPHOCYTES # (AUTO) 0.4 X 10^3 (1.0-4.0); LYMPHOCYTES % (AUTO) 19 % (12-44); MEAN CORPUSCULAR HEMOGLOBIN 33 PG (25-34); MEAN CORPUSCULAR HGB CONC 34 G/DL (32-36); MEAN CORPUSCULAR VOLUME 97 FL (80-99); MEAN PLATELET VOLUME 9.3 FL (7.4-10.4); MONOCYTES # (AUTO) 0.4 X 10^3 (0.0-1.0); MONOCYTES % (AUTO) 16 % (0-12); NEUTROPHILS # (AUTO) 1.4 X 10^3 (1.8-7.8); NEUTROPHILS % (AUTO) 64 % (42-75); PLATELET COUNT 156 10^3/uL (130-400); RED CELL DISTRIBUTION WIDTH 15.8 % (10.0-14.5); WHITE BLOOD COUNT 2.2 10^3/uL (4.3-11.0)
[2019-07-25 10:41] LABS: CARBON DIOXIDE 25 MMOL/L (21-32); CHLORIDE 97 MMOL/L (98-107); POTASSIUM 4.7 MMOL/L (3.6-5.0); SODIUM 130 MMOL/L (135-145)
[2019-07-25 10:42] LABS: ALANINE AMINOTRANSFERASE 13 U/L (0-55); ALBUMIN 3.9 GM/DL (3.2-4.5); ALKALINE PHOSPHATASE 59 U/L (40-136); BILIRUBIN,TOTAL 0.5 MG/DL (0.1-1.0); BUN/CREATININE RATIO 19; CALCIUM 8.9 MG/DL (8.5-10.1); CREATININE SERUM 0.85 MG/DL (0.60-1.30); GFR ESTIMATED > 60; GLUCOSE 91 MG/DL (70-105); MAGNESIUM 1.9 MG/DL (1.6-2.4); TOTAL PROTEIN 6.5 GM/DL (6.4-8.2)
[2019-07-31 15:43] LABS: BASOPHILS % (AUTO) 1 % (0-10); EOSINOPHILS % (AUTO) 1 % (0-10); HEMATOCRIT 29 % (40-54); HEMOGLOBIN 9.9 G/DL (13.3-17.7); LYMPHOCYTES # (AUTO) 0.4 X 10^3 (1.0-4.0); LYMPHOCYTES % (AUTO) 20 % (12-44); MEAN CORPUSCULAR HEMOGLOBIN 34 PG (25-34); MEAN CORPUSCULAR HGB CONC 34 G/DL (32-36); MEAN CORPUSCULAR VOLUME 98 FL (80-99); MONOCYTES # (AUTO) 0.5 X 10^3 (0.0-1.0); MONOCYTES % (AUTO) 21 % (0-12); NEUTROPHILS # (AUTO) 1.2 X 10^3 (1.8-7.8); NEUTROPHILS % (AUTO) 56 % (42-75); PLATELET COUNT 182 10^3/uL (130-400); RED CELL DISTRIBUTION WIDTH 17.1 % (10.0-14.5); WHITE BLOOD COUNT 2.2 10^3/uL (4.3-11.0)
[2019-07-31 16:02] LABS: BUN/CREATININE RATIO 19; CALCIUM 8.6 MG/DL (8.5-10.1); CARBON DIOXIDE 28 MMOL/L (21-32); CHLORIDE 96 MMOL/L (98-107); CREATININE SERUM 0.79 MG/DL (0.60-1.30); GFR ESTIMATED > 60; GLUCOSE 98 MG/DL (70-105); POTASSIUM 4.4 MMOL/L (3.6-5.0); SODIUM 130 MMOL/L (135-145)
[~2019-08-14] VITALS: Ht 188 cm; Wt 87.5 kg
[~2019-08-14 14:29] MED LIST changes: +CISplatin 60 MG, MANNITOL 25% INJ (CANCER CTR) 12.5 GM, MAGNESIUM SULFATE (CANCER CTR) ... IV SCH; +CISplatin 70 MG, MANNITOL 25% INJ (CANCER CTR) 12.5 GM, MAGNESIUM SULFATE (CANCER CTR) ... IV SCH; +FOSAPREPITANT (CANCER CENTER) 150 MG in NS (IVPB) CANCER CENTER ONLY 150 ML IV SCH; -GADOBUTROL 10 MMOL/10 ML (GADAVIST) VIAL IV ONE; +HYDROcodone/APAP 5 MG/325 MG (LORTAB) CANCER CTR PO ONE; +NS IV 1000 ML (CANCER CTR) IV SCH; +PALONOSETRON HCL 0.25 MG, DEXAMETHASONE INJECTION 10 MG in NS (IVPB) CANCER CENTER 50 ML IV SCH
[2019-08-14 14:44] LABS: BASOPHILS % (AUTO) 0 % (0-10); EOSINOPHILS % (AUTO) 1 % (0-10); HEMATOCRIT 30 % (40-54); HEMOGLOBIN 10.1 G/DL (13.3-17.7); LYMPHOCYTES # (AUTO) 0.6 X 10^3 (1.0-4.0); LYMPHOCYTES % (AUTO) 23 % (12-44); MEAN CORPUSCULAR HEMOGLOBIN 35 PG (25-34); MEAN CORPUSCULAR HGB CONC 34 G/DL (32-36); MEAN CORPUSCULAR VOLUME 102 FL (80-99); MEAN PLATELET VOLUME 9.5 FL (7.4-10.4); MONOCYTES # (AUTO) 0.6 X 10^3 (0.0-1.0); MONOCYTES % (AUTO) 20 % (0-12); NEUTROPHILS # (AUTO) 1.5 X 10^3 (1.8-7.8); NEUTROPHILS % (AUTO) 55 % (42-75); PLATELET COUNT 165 10^3/uL (130-400); RED CELL DISTRIBUTION WIDTH 19.2 % (10.0-14.5); WHITE BLOOD COUNT 2.8 10^3/uL (4.3-11.0)
[2019-08-14 15:01] LABS: ALANINE AMINOTRANSFERASE 10 U/L (0-55); ALKALINE PHOSPHATASE 67 U/L (40-136); BILIRUBIN,TOTAL 0.3 MG/DL (0.1-1.0); BUN/CREATININE RATIO 16; CALCIUM 9.1 MG/DL (8.5-10.1); CARBON DIOXIDE 28 MMOL/L (21-32); CHLORIDE 97 MMOL/L (98-107); CREATININE SERUM 0.92 MG/DL (0.60-1.30); GFR ESTIMATED > 60; GLUCOSE 104 MG/DL (70-105); MAGNESIUM 1.9 MG/DL (1.6-2.4); POTASSIUM 4.4 MMOL/L (3.6-5.0); SODIUM 131 MMOL/L (135-145); TOTAL PROTEIN 6.7 GM/DL (6.4-8.2)
== END 2019-09-03 | disposition home or self-care (01) ==
LOC: ONC 14:29
PROVIDERS: ATTEND Internal Medicine Hematology & Oncology
DX: Z51.11 Encounter for antineoplastic chemotherapy (principal); C09.1 Malignant neoplasm of tonsillar pillar (anterior) (posterior)
CPT/HCPCS: 80053; 83735; 85025; G0463; 36591; 80048; 96360; 96367; 96375; 96413; 99213; 99214